=== PATIENT | female | born 1995 | race Caucasian/White ===

== ENCOUNTER 2017-09-13 06:22 | Emergency (ER) | payer OTHER ==
[~2017-09-13] VITALS: Ht 182.9 cm; Wt 50.0 kg
[~2017-09-13 06:22] MED LIST: ALBUTEROL INHALLER; AMOX TR-K CLV1 EAC4 PO; AMOXICILLIN500 MG PO; ATARAX,VISTARIL25 MG PO; BACTRIM,SEPT1 TABLET PO; BENTYL20 MG PO; BOTOX; CIPRO500 MG PO; CLOZARIL100 MG PO; CYCLOBENZAPRINE10 MG PO; CYCLOBENZAPRINE5 MG PO; DIAZEPAM5 MG PO; ENDOCET 5-3251 EACH PO; EXCEDRIN EXTRA1 EACH PO; FIORICET 50-301 EACH PO; FIORICET WI1 CAPSULE PO; FLOVENT; GEODON20 MG PO; IBUPROFEN600 MG PO; IMITREX25 MG PO; IMITREX50 MG PO; KEFLEX500 MG PO; KEPPRA1000 MG PO; KEPPRA500 MG PO; KLONOPIN0.5 M1 PO; LAMICTAL100 MG PO; LEVETIRACETAM500 MG PO; LIDOCAINE HCL35 GM TP; LORTAB 5-325 M1 EACH PO; MELATONIN5 MG SL; MOTRIN800 MG PO; NAPROSYN500 MG PO; NICOTINE PATCH1 EAC2 TD; NORCO 5/3251 TABLET PO; OXCARBAZEPINE600 MG PO; PERCOCET 5/31 TABLET PO; PROAIR HFA8.5 GM IH; REGLAN10 MG PO; RISPERDAL1 MG PO; SERTRALINE HCL100 MG PO; TOPAMAX25 MG PO; TRILEPTAL300 MG PO; TRILEPTAL600 MG PO; TRINESSA1 EACH PO; TYLENOL ARTHRI650 MG PO; VALIUM5 MG PO; VENTOLIN HFA18 GM IH; VIMPAT50 MG PO; VISTARIL25 MG PO; ZOFRAN ODT4 MG PO; ZOFRAN4 MG PO; ZOFRAN8 MG PO; ZOLOFT100 MG PO; ZOLOFT50 MG PO; nicotine gum
[2017-09-13 09:07] LABS: APPEARANCE SL.HAZY ((CLEAR)); BILIRUBIN NEGATIVE; BLOOD NEGATIVE; COLOR YELLOW ((YELLOW)); GLUCOSE (STRIP) NEGATIVE; KETONES NEGATIVE; LEUKOCYTES NEGATIVE; NITRITE NEGATIVE; PROTEIN (STRIP) NEGATIVE; SPECIFIC GRAVITY 1.021 (1.000-1.030)
[2017-09-13 09:09] LABS: BACTERIA NONE SEEN /HPF; EPITHELIAL CELLS 1+ /HPF; MUCUS TRACE /LPF; RED BLOOD CELLS 0-5 /HPF (0-5); UCUL ADDED? NO; WHITE BLOOD CELLS 0-5 /HPF (0-5)
[2017-09-13 09:16] VITALS: BP 111/66
[2017-09-13 09:19] LABS: AMPHETAMINE NEGATIVE (500 ng/mL); BARBITURATES NEGATIVE (200 ng/mL); BENZODIAZEPINES PRESUMPTIVE POSITIVE (150 ng/mL); BUPRENORPHINE NEGATIVE (10 ng/mL); COCAINE NEGATIVE (150 ng/mL); METHADONE NEGATIVE (200 ng/mL); METHAMPHETAMINE NEGATIVE (500 ng/mL); OPIATES (MORPHINE) NEGATIVE (100 ng/mL); OXYCODONE NEGATIVE (100 ng/mL); PHENCYCLIDINE NEGATIVE (25 ng/mL); PROPOXYPHENE NEGATIVE (300 ng/mL); THC CANNABINOIDS PRESUMPTIVE POSITIVE (50 ng/mL); TRICYCLIC ANTIDEPRESSANTS NEGATIVE (300 ng/mL)
[2017-09-13 09:51] LABS: BENZODIAZEPINES, URINE SCREEN POSITIVE (200 ng/mL)
== END 2017-09-13 09:26 | disposition home or self-care (01) ==
LOC: EME 06:22 → EDBD 06:22 → EME 09:26
PROVIDERS: Emergency Medicine
DX: G40.909 Epilepsy, unspecified, not intractable, without status epilepticus (principal); F19.10 Other psychoactive substance abuse, uncomplicated; J45.909 Unspecified asthma, uncomplicated; F17.200 Nicotine dependence, unspecified, uncomplicated; F41.9 Anxiety disorder, unspecified; K21.9 Gastro-esophageal reflux disease without esophagitis; F31.9 Bipolar disorder, unspecified; F60.3 Borderline personality disorder; F43.10 Post-traumatic stress disorder, unspecified; Z88.8 Allergy status to other drugs, medicaments and biological substances
CPT/HCPCS: 81003; 84999; 99281; 99285

== ENCOUNTER 2017-09-13 14:25 | Emergency (ER) | payer OTHER ==
[~2017-09-13] VITALS: Ht 182.9 cm; Wt 64.5 kg
[2017-09-13 17:46] VITALS: BP 126/73
== END 2017-09-13 17:49 | disposition home or self-care (01) ==
LOC: EME 14:25
DX: G43.909 Migraine, unspecified, not intractable, without status migrainosus (principal); K21.9 Gastro-esophageal reflux disease without esophagitis; J45.909 Unspecified asthma, uncomplicated; F32.9 Major depressive disorder, single episode, unspecified; F41.9 Anxiety disorder, unspecified; R56.9 Unspecified convulsions; F31.9 Bipolar disorder, unspecified; Z87.440 Personal history of urinary (tract) infections; F17.200 Nicotine dependence, unspecified, uncomplicated; Z88.5 Allergy status to narcotic agent; Z88.8 Allergy status to other drugs, medicaments and biological substances
CPT/HCPCS: 99281; 99284; J1885; J2765; J3486

== ENCOUNTER 2017-09-19 20:16 | Emergency (ER) | payer OTHER ==
[~2017-09-19] VITALS: Ht 182.9 cm; Wt 65.8 kg
[2017-09-19 21:59] LABS: CHLORIDE 107 mEq/L (99-109); POTASSIUM 3.8 mEq/L (3.7-5.4); SODIUM 140 mEq/L (136-147)
[2017-09-19 22:01] LABS: GLUCOSE 103 mg/dL (70-99)
[2017-09-19 22:05] LABS: CREATININE 0.7 mg/dL (0.6-1.3); GFR ESTIMATE (CALCULATED) > 59 mL/min/
[2017-09-19 22:06] LABS: UREA NITROGEN (BUN) 14 mg/dL (9-23)
[2017-09-19 22:32] VITALS: BP 137/67
== END 2017-09-19 22:33 | disposition home or self-care (01) ==
LOC: EME 20:16
PROVIDERS: Emergency Medicine
DX: G40.909 Epilepsy, unspecified, not intractable, without status epilepticus (principal); F17.200 Nicotine dependence, unspecified, uncomplicated
CPT/HCPCS: 80048; 99281; 99284

== ENCOUNTER 2017-10-01 20:42 | Emergency (ER) | payer OTHER ==
[~2017-10-01] VITALS: Ht 182.9 cm; Wt 66.1 kg
[2017-10-01 21:00] LABS: HEMATOCRIT 39.4 % (36.0-46.0); HEMOGLOBIN 13.3 G/DL (11.9-15.5); MCHC 33.8 G/DL (30.0-36.0); RBC DIS.WIDTH-CV 14.6 % (11.8-14.6); RBC DIS.WIDTH-SD 46.1 % (39-53); RED BLOOD COUNT 4.58 M/uL (3.80-5.20)
[2017-10-01 21:03] LABS: PLATELET COUNT 294 K/uL (156-360)
[2017-10-01 21:14] LABS: ALBUMIN 4.4 g/dL (3.2-4.8); CHLORIDE 103 mEq/L (99-109); POTASSIUM 3.8 mEq/L (3.7-5.4); SODIUM 139 mEq/L (136-147)
[2017-10-01 21:16] LABS: GLUCOSE 86 mg/dL (70-99); TOTAL PROTEIN 7.6 g/dL (6.4-8.3)
[2017-10-01 21:18] LABS: TOTAL BILIRUBIN 0.3 mg/dL (0.0-1.0)
[2017-10-01 21:20] LABS: ALKALINE PHOSPHATASE 76 IU/L (3-129); CREATININE 0.8 mg/dL (0.6-1.3); GFR ESTIMATE (CALCULATED) > 59 mL/min/
[2017-10-01 21:21] LABS: UREA NITROGEN (BUN) 12 mg/dL (9-23)
[2017-10-01 21:22] LABS: AST (GOT) 19 IU/L (2-34)
[2017-10-01 21:23] LABS: ALT (GPT) 14 IU/L (3-49)
[2017-10-01 21:31] LABS: QUANTITATIVE HCG < 4.0 MIU/ML
[2017-10-01 21:56] LABS: APPEARANCE SL.HAZY ((CLEAR)); BILIRUBIN NEGATIVE; BLOOD NEGATIVE; COLOR YELLOW ((YELLOW)); GLUCOSE (STRIP) NEGATIVE; KETONES NEGATIVE; LEUKOCYTES NEGATIVE; NITRITE NEGATIVE; PROTEIN (STRIP) >=500; SPECIFIC GRAVITY 1.028 (1.000-1.030); UROBILINOGEN 0.2 MG/DL (0.2-1.0)
[2017-10-01 22:01] LABS: BACTERIA NONE SEEN /HPF; EPITHELIAL CELLS 1+ /HPF; MUCUS 1+ /LPF; UCUL ADDED? YES
[2017-10-01] MEDS ORDERED: CIPRO500 MG PO (23:23)
[2017-10-01 23:50] VITALS: BP 119/90
== END 2017-10-01 23:52 | disposition home or self-care (01) ==
LOC: EME 20:42
DX: N39.0 Urinary tract infection, site not specified (principal); J45.909 Unspecified asthma, uncomplicated; K21.9 Gastro-esophageal reflux disease without esophagitis; F32.9 Major depressive disorder, single episode, unspecified; F41.9 Anxiety disorder, unspecified; R56.9 Unspecified convulsions; F17.200 Nicotine dependence, unspecified, uncomplicated
CPT/HCPCS: 74176; 80053; 81003; 84702; 85027; 87086; 99281; 99284

== ENCOUNTER 2017-10-02 21:04 | Emergency (ER) | payer OTHER ==
[~2017-10-02] VITALS: Ht 182.9 cm; Wt 53.4 kg
[2017-10-02 22:08] LABS: AMPHETAMINE NEGATIVE (500 ng/mL); BARBITURATES NEGATIVE (200 ng/mL); BENZODIAZEPINES PRESUMPTIVE POSITIVE (150 ng/mL); BUPRENORPHINE NEGATIVE (10 ng/mL); COCAINE NEGATIVE (150 ng/mL); METHADONE NEGATIVE (200 ng/mL); METHAMPHETAMINE NEGATIVE (500 ng/mL); OPIATES (MORPHINE) NEGATIVE (100 ng/mL); OXYCODONE NEGATIVE (100 ng/mL); PHENCYCLIDINE NEGATIVE (25 ng/mL); PROPOXYPHENE NEGATIVE (300 ng/mL); THC CANNABINOIDS PRESUMPTIVE POSITIVE (50 ng/mL); TRICYCLIC ANTIDEPRESSANTS PRESUMPTIVE POSITIVE (300 ng/mL)
[2017-10-02 22:21] LABS: CHLORIDE 110 mEq/L (99-109); SODIUM 138 mEq/L (136-147)
[2017-10-02 22:22] LABS: GLUCOSE 91 mg/dL (70-99)
[2017-10-02 22:25] LABS: SERUM ETHYL ALCOHOL 41 mg/dL
[2017-10-02 22:26] LABS: CREATININE 0.7 mg/dL (0.6-1.3); GFR ESTIMATE (CALCULATED) > 59 mL/min/
[2017-10-02 22:27] LABS: UREA NITROGEN (BUN) 14 mg/dL (9-23)
[2017-10-02 22:36] VITALS: BP 146/67
[2017-10-02 22:38] LABS: BENZODIAZEPINES, URINE SCREEN Negative (200 ng/mL)
[2017-10-02 22:38] LABS: POTASSIUM 4.8 mEq/L (3.7-5.4)
== END 2017-10-02 22:37 | disposition home or self-care (01) ==
LOC: EME 21:04
DX: F32.9 Major depressive disorder, single episode, unspecified (principal); F41.1 Generalized anxiety disorder; F60.3 Borderline personality disorder; G40.909 Epilepsy, unspecified, not intractable, without status epilepticus; Z59.0 Homelessness; F17.200 Nicotine dependence, unspecified, uncomplicated
CPT/HCPCS: 80048; 84702; 84999; 85027; 90837; 99281; 99284; G0480

== ENCOUNTER 2017-10-07 18:16 | Emergency (ER) | payer OTHER ==
[~2017-10-07] VITALS: Ht 182.9 cm; Wt 64.2 kg
[2017-10-07] MEDS ORDERED: VIMPAT50 MG PO (21:07)
[2017-10-07 21:43] VITALS: BP 118/57
[2017-10-07] MEDS ORDERED: EFFEXOR75 MG PO (21:46)
[2017-10-07] MEDS ORDERED: AMITRIPTYLINE H25 MG PO ×2 (21:46→21:47)
== END 2017-10-07 21:50 | disposition home or self-care (01) ==
LOC: EME 18:16
DX: R51 Headache (principal); G40.89 Other seizures; K21.9 Gastro-esophageal reflux disease without esophagitis; J45.909 Unspecified asthma, uncomplicated; F41.9 Anxiety disorder, unspecified; F32.9 Major depressive disorder, single episode, unspecified; F17.200 Nicotine dependence, unspecified, uncomplicated; Z88.5 Allergy status to narcotic agent; Z88.8 Allergy status to other drugs, medicaments and biological substances
CPT/HCPCS: J2765; J7030

== ENCOUNTER 2017-10-16 15:55 | Emergency (ER) | payer OTHER ==
[~2017-10-16] VITALS: Ht 182.9 cm; Wt 62.3 kg
[~2017-10-16 15:55] MED LIST changes: +AMITRIPTYLINE H25 MG PO; +EFFEXOR75 MG PO
[2017-10-16 17:02] LABS: HEMATOCRIT 45.9 % (36.0-46.0); MCHC 33.6 G/DL (30.0-36.0); MCV 86.4 FL (83-99); RBC DIS.WIDTH-CV 15.2 % (11.8-14.6); RBC DIS.WIDTH-SD 48.4 % (39-53); RED BLOOD COUNT 5.31 M/uL (3.80-5.20)
[2017-10-16 17:14] LABS: ALBUMIN 4.7 g/dL (3.2-4.8)
[2017-10-16 17:15] LABS: CHLORIDE 105 mEq/L (99-109); POTASSIUM 3.6 mEq/L (3.7-5.4); SODIUM 140 mEq/L (136-147)
[2017-10-16 17:17] LABS: GLUCOSE 80 mg/dL (70-99); TOTAL PROTEIN 8.2 g/dL (6.4-8.3)
[2017-10-16 17:19] LABS: TOTAL BILIRUBIN 0.3 mg/dL (0.0-1.0)
[2017-10-16 17:20] LABS: ALKALINE PHOSPHATASE 84 IU/L (3-129)
[2017-10-16 17:21] LABS: CREATININE 0.7 mg/dL (0.6-1.3); GFR ESTIMATE (CALCULATED) > 59 mL/min/
[2017-10-16 17:22] LABS: AST (GOT) 19 IU/L (2-34); UREA NITROGEN (BUN) 13 mg/dL (9-23)
[2017-10-16 17:24] LABS: ALT (GPT) 15 IU/L (3-49)
[2017-10-16 18:27] LABS: HEMOGLOBIN 15.4 G/DL (11.9-15.5); PLATELET COUNT 100 K/uL (156-360)
[2017-10-16 19:21] VITALS: BP 134/62
== END 2017-10-16 19:22 | disposition home or self-care (01) ==
LOC: EME 15:55
PROVIDERS: Emergency Medicine
DX: G40.909 Epilepsy, unspecified, not intractable, without status epilepticus (principal); R00.0 Tachycardia, unspecified; F17.200 Nicotine dependence, unspecified, uncomplicated
CPT/HCPCS: 80053; 85027; 93005; 99281; 99285; J2250; J7030

== ENCOUNTER 2017-10-19 20:48 | Emergency (ER) | payer OTHER ==
[~2017-10-19] VITALS: Ht 182.9 cm; Wt 65.3 kg
[2017-10-19 21:57] VITALS: BP 131/64
== END 2017-10-19 21:58 | disposition home or self-care (01) ==
LOC: EME 20:48
DX: F32.9 Major depressive disorder, single episode, unspecified (principal); G40.909 Epilepsy, unspecified, not intractable, without status epilepticus; F12.90 Cannabis use, unspecified, uncomplicated; J45.909 Unspecified asthma, uncomplicated; K21.9 Gastro-esophageal reflux disease without esophagitis; F41.9 Anxiety disorder, unspecified; F17.200 Nicotine dependence, unspecified, uncomplicated
CPT/HCPCS: 80053; 81003; 85027; 99281; 99283; G0480

== ENCOUNTER 2017-10-20 14:47 | Emergency (ER) | payer OTHER ==
[~2017-10-20] VITALS: Ht 182.9 cm; Wt 65.1 kg
[2017-10-20 16:07] VITALS: BP 133/58
== END 2017-10-20 16:37 | disposition home or self-care (01) ==
LOC: EME 14:47
DX: G40.909 Epilepsy, unspecified, not intractable, without status epilepticus (principal); Z91.14 Patient's other noncompliance with medication regimen; K21.9 Gastro-esophageal reflux disease without esophagitis; J45.909 Unspecified asthma, uncomplicated; F41.9 Anxiety disorder, unspecified; F32.9 Major depressive disorder, single episode, unspecified; F31.9 Bipolar disorder, unspecified; F17.200 Nicotine dependence, unspecified, uncomplicated; Z87.440 Personal history of urinary (tract) infections; Z88.5 Allergy status to narcotic agent; Z88.8 Allergy status to other drugs, medicaments and biological substances
CPT/HCPCS: 82948; 99281; 99283

== ENCOUNTER 2017-10-20 21:12 | Emergency (ER) | payer OTHER ==
[~2017-10-20] VITALS: Ht 165.1 cm; Wt 61.8 kg
[2017-10-20 21:56] LABS: APPEARANCE CLEAR ((CLEAR)); BILIRUBIN NEGATIVE; BLOOD NEGATIVE; COLOR COLORLESS ((YELLOW)); GLUCOSE (STRIP) NEGATIVE; KETONES NEGATIVE; LEUKOCYTES NEGATIVE; NITRITE NEGATIVE; PROTEIN (STRIP) NEGATIVE; SPECIFIC GRAVITY 1.003 (1.000-1.030); UROBILINOGEN 0.2 MG/DL (0.2-1.0)
[2017-10-20 22:06] LABS: AMPHETAMINE NEGATIVE (500 ng/mL); BARBITURATES NEGATIVE (200 ng/mL); BENZODIAZEPINES NEGATIVE (150 ng/mL); BUPRENORPHINE NEGATIVE (10 ng/mL); COCAINE NEGATIVE (150 ng/mL); METHADONE NEGATIVE (200 ng/mL); METHAMPHETAMINE NEGATIVE (500 ng/mL); OPIATES (MORPHINE) NEGATIVE (100 ng/mL); OXYCODONE NEGATIVE (100 ng/mL); PHENCYCLIDINE NEGATIVE (25 ng/mL); PROPOXYPHENE NEGATIVE (300 ng/mL); THC CANNABINOIDS PRESUMPTIVE POSITIVE (50 ng/mL); TRICYCLIC ANTIDEPRESSANTS NEGATIVE (300 ng/mL)
[2017-10-20 22:33] LABS: HEMATOCRIT 36.4 % (36.0-46.0); MCH 28.7 PG (29.0-34.0); MCHC 33.2 G/DL (30.0-36.0); MCV 86.5 FL (83-99); RBC DIS.WIDTH-CV 15.2 % (11.8-14.6); RBC DIS.WIDTH-SD 47.9 % (39-53)
[2017-10-20 22:38] LABS: HEMOGLOBIN 12.1 G/DL (11.9-15.5); PLATELET COUNT 254 K/uL (156-360); RED BLOOD COUNT 4.21 M/uL (3.80-5.20)
[2017-10-20 22:40] LABS: ALBUMIN 3.9 g/dL (3.2-4.8); CHLORIDE 114 mEq/L (99-109); SODIUM 146 mEq/L (136-147)
[2017-10-20 22:42] LABS: GLUCOSE 91 mg/dL (70-99)
[2017-10-20 22:43] LABS: TOTAL PROTEIN 6.4 g/dL (6.4-8.3)
[2017-10-20 22:45] LABS: SERUM ETHYL ALCOHOL 231 mg/dL
[2017-10-20 22:46] LABS: ALKALINE PHOSPHATASE 76 IU/L (3-129); CREATININE 0.7 mg/dL (0.6-1.3); GFR ESTIMATE (CALCULATED) > 59 mL/min/
[2017-10-20 22:47] LABS: TOTAL BILIRUBIN 0.1 mg/dL (0.0-1.0); UREA NITROGEN (BUN) 13 mg/dL (9-23)
[2017-10-20 22:48] LABS: AST (GOT) 16 IU/L (2-34)
[2017-10-20 22:49] LABS: ALT (GPT) 13 IU/L (3-49)
[2017-10-21 05:15] VITALS: BP 115/65
== END 2017-10-21 05:15 | disposition home or self-care (01) ==
LOC: EME → EDBD 21:12 → EME 21:12
PROVIDERS: Emergency Medicine
DX: F10.129 Alcohol abuse with intoxication, unspecified (principal); R56.9 Unspecified convulsions; T76.21XA Adult sexual abuse, suspected, initial encounter; F12.10 Cannabis abuse, uncomplicated; Y90.7 Blood alcohol level of 200-239 mg/100 ml; Z88.8 Allergy status to other drugs, medicaments and biological substances
CPT/HCPCS: 80053; 81003; 84999; 85027; 99281; 99285; G0480; J1630; J1953; J2250; J2405; J7030; J7050

== ENCOUNTER 2017-10-24 20:36 | Emergency (ER) | payer OTHER ==
[~2017-10-24] VITALS: Ht 182.9 cm; Wt 66.8 kg
[2017-10-24 21:14] LABS: BASOPHIL (%) 0.3 % (0-1); EOSINOPHIL (%) 2.1 % (0-5); EOSINOPHIL COUNT 0.3 K/uL (0-0.3); HEMATOCRIT 37.2 % (36.0-46.0); HEMOGLOBIN 12.7 G/DL (11.9-15.5); IMMATURE GRANULOCYTE (%) 0.3 % (0.0-0.7); LYMPHOCYTE (%) 31.4 % (15-42); LYMPHOCYTE COUNT 3.8 K/uL (1.0-2.8); MCH 29.1 PG (29.0-34.0); MCHC 34.1 G/DL (30.0-36.0); MCV 85.1 FL (83-99); MONOCYTE (%) 7.7 % (3-12); MONOCYTE COUNT 0.9 K/uL (0-0.8); NEUTROPHIL (%) 58.2 % (45-76); PLATELET COUNT 285 K/uL (156-360); RBC DIS.WIDTH-CV 15.2 % (11.8-14.6); RBC DIS.WIDTH-SD 47.2 % (39-53); RED BLOOD COUNT 4.37 M/uL (3.80-5.20)
[2017-10-24 21:24] LABS: ALBUMIN 4.1 g/dL (3.2-4.8); CHLORIDE 106 mEq/L (99-109); POTASSIUM 3.3 mEq/L (3.7-5.4); SODIUM 142 mEq/L (136-147)
[2017-10-24 21:26] LABS: GLUCOSE 83 mg/dL (70-99); TOTAL PROTEIN 6.8 g/dL (6.4-8.3)
[2017-10-24 21:28] LABS: TOTAL BILIRUBIN 0.1 mg/dL (0.0-1.0)
[2017-10-24 21:29] LABS: SERUM ETHYL ALCOHOL 129 mg/dL
[2017-10-24 21:30] LABS: ALKALINE PHOSPHATASE 75 IU/L (3-129); CREATININE 0.6 mg/dL (0.6-1.3); GFR ESTIMATE (CALCULATED) > 59 mL/min/
[2017-10-24 21:31] LABS: AST (GOT) 15 IU/L (2-34)
[2017-10-24 21:32] LABS: UREA NITROGEN (BUN) 9 mg/dL (9-23)
[2017-10-24 21:33] LABS: SALICYLATE < 5.0 MG/DL (15-30)
[2017-10-24 21:34] LABS: ACETAMINOPHEN (TYLENOL) < 10 mcg/mL (10-30); ALT (GPT) 13 IU/L (3-49)
[2017-10-24 22:24] LABS: AMPHETAMINE NEGATIVE (500 ng/mL); BARBITURATES NEGATIVE (200 ng/mL); BENZODIAZEPINES NEGATIVE (150 ng/mL); BUPRENORPHINE NEGATIVE (10 ng/mL); COCAINE NEGATIVE (150 ng/mL); METHADONE NEGATIVE (200 ng/mL); METHAMPHETAMINE NEGATIVE (500 ng/mL); OPIATES (MORPHINE) NEGATIVE (100 ng/mL); OXYCODONE NEGATIVE (100 ng/mL); PHENCYCLIDINE NEGATIVE (25 ng/mL); PROPOXYPHENE NEGATIVE (300 ng/mL); THC CANNABINOIDS PRESUMPTIVE POSITIVE (50 ng/mL); TRICYCLIC ANTIDEPRESSANTS NEGATIVE (300 ng/mL)
[2017-10-24 22:25] LABS: APPEARANCE CLEAR ((CLEAR)); BILIRUBIN NEGATIVE; BLOOD NEGATIVE; COLOR YELLOW ((YELLOW)); GLUCOSE (STRIP) NEGATIVE; KETONES NEGATIVE; LEUKOCYTES TRACE; NITRITE NEGATIVE; PROTEIN (STRIP) 100; SPECIFIC GRAVITY 1.013 (1.000-1.030); UROBILINOGEN 0.2 MG/DL (0.2-1.0)
[2017-10-24 22:31] LABS: BACTERIA RARE /HPF; EPITHELIAL CELLS 1+ /HPF; MUCUS TRACE /LPF; RED BLOOD CELLS 0-5 /HPF (0-5); WHITE BLOOD CELLS 0-5 /HPF (0-5)
[2017-10-25 00:14] VITALS: BP 151/69
== END 2017-10-25 00:16 | disposition home or self-care (01) ==
LOC: EME 20:36
PROVIDERS: Emergency Medicine
DX: F32.9 Major depressive disorder, single episode, unspecified (principal); F41.9 Anxiety disorder, unspecified; F60.3 Borderline personality disorder; F10.10 Alcohol abuse, uncomplicated; Y90.6 Blood alcohol level of 120-199 mg/100 ml; Z59.0 Homelessness; Z91.410 Personal history of adult physical and sexual abuse; J45.909 Unspecified asthma, uncomplicated; K21.9 Gastro-esophageal reflux disease without esophagitis; R56.9 Unspecified convulsions; F17.200 Nicotine dependence, unspecified, uncomplicated; Z87.440 Personal history of urinary (tract) infections; Z88.8 Allergy status to other drugs, medicaments and biological substances
CPT/HCPCS: 80053; 81003; 81025; 84999; 85025; 90839; 99281; 99284; G0480

== ENCOUNTER 2017-12-29 21:56 | Emergency (ER) | payer OTHER ==
[~2017-12-29] VITALS: Ht 182.9 cm; Wt 65.5 kg
[2017-12-29] MEDS ORDERED: PEN-VEE K,VEET500 MG PO (21:58)
[2017-12-29 22:37] VITALS: BP 125/73
== END 2017-12-29 22:47 | disposition home or self-care (01) ==
LOC: EME 21:56
DX: J02.0 Streptococcal pharyngitis (principal); J45.909 Unspecified asthma, uncomplicated; K21.9 Gastro-esophageal reflux disease without esophagitis; F41.9 Anxiety disorder, unspecified; F32.9 Major depressive disorder, single episode, unspecified; F31.9 Bipolar disorder, unspecified; F17.200 Nicotine dependence, unspecified, uncomplicated; Z87.440 Personal history of urinary (tract) infections; Z88.5 Allergy status to narcotic agent; Z88.8 Allergy status to other drugs, medicaments and biological substances
CPT/HCPCS: 99281; 99284; J1100

== ENCOUNTER 2018-03-15 15:07 | Emergency (ER) | payer OTHER ==
[~2018-03-15] VITALS: Ht 182.9 cm; Wt 63.6 kg
[~2018-03-15 15:07] MED LIST changes: +PEN-VEE K,VEET500 MG PO
[2018-03-15 15:53] LABS: PLATELET COUNT 135 K/uL (156-360)
[2018-03-15 15:59] LABS: HEMOGLOBIN 12.6 G/DL (11.9-15.5); MCH 28.6 PG (29.0-34.0); MCV 81.8 FL (83-99); RBC DIS.WIDTH-CV 15.9 % (11.8-14.6); RBC DIS.WIDTH-SD 47.8 % (39-53)
[2018-03-15 16:02] LABS: ALBUMIN 3.5 g/dL (3.2-4.8); CHLORIDE 103 mEq/L (99-109); POTASSIUM 3.6 mEq/L (3.7-5.4); SODIUM 137 mEq/L (136-147)
[2018-03-15 16:05] LABS: GLUCOSE 92 mg/dL (70-99); TOTAL PROTEIN 6.5 g/dL (6.4-8.3); WHITE BLOOD COUNT 32.3 K/uL (4.1-10.2)
[2018-03-15 16:07] LABS: TOTAL BILIRUBIN 1.9 mg/dL (0.0-1.0)
[2018-03-15 16:08] LABS: ALKALINE PHOSPHATASE 175 IU/L (3-129)
[2018-03-15 16:09] LABS: CREATININE 0.9 mg/dL (0.6-1.3); GFR ESTIMATE (CALCULATED) > 59 mL/min/
[2018-03-15 16:10] LABS: AST (GOT) 244 IU/L (2-34); DIRECT BILIRUBIN 1.2 mg/dL (0.0-0.3); UREA NITROGEN (BUN) 16 mg/dL (9-23)
[2018-03-15 16:11] LABS: ALT (GPT) 472 IU/L (3-49)
[2018-03-15 16:12] LABS: LIPASE 11 U/L (1.0-51.0)
[2018-03-15 17:09] LABS: ABS NEUTROPHIL COUNT 29.6; ACANTHOCYTES 1+; BAND NEUTROPHILS 11.5 % (0-8.0); BURR CELLS 3+; EOSINOPHIL ABS CT 0; HYPOCHROMASIA 1+; LYMPHOCYTES 3.5 % (15.0-45.0); MACROCYTES 1+; MICROCYTOSIS 1+; PLAT.SUFFICIENCY DECREASED; POIKILOCYTOSIS 1+; TOX.VACUOLIZATION 1+; TOXIC GRANULATION 1+
[2018-03-15 17:27] LABS: APPEARANCE CLEAR ((CLEAR)); BILIRUBIN NEGATIVE; BLOOD NEGATIVE; COLOR AMBER ((YELLOW)); GLUCOSE (STRIP) NEGATIVE; KETONES NEGATIVE; LEUKOCYTES NEGATIVE; NITRITE NEGATIVE; PROTEIN (STRIP) 100
[2018-03-15 17:34] LABS: BACTERIA RARE /HPF; CALCIUM OXALATE CRYSTALS 1+ /HPF; EPITHELIAL CELLS 2+ /HPF; MUCUS NONE SEEN /LPF; WHITE BLOOD CELLS 30-40 /HPF (0-5)
[2018-03-15 17:34] LABS: SERUM ETHYL ALCOHOL < 10 mg/dL
[2018-03-15 17:47] LABS: AMPHETAMINE PRESUMPTIVE POSITIVE (500 ng/mL); BARBITURATES NEGATIVE (200 ng/mL); BENZODIAZEPINES NEGATIVE (150 ng/mL); BUPRENORPHINE NEGATIVE (10 ng/mL); COCAINE NEGATIVE (150 ng/mL); METHADONE NEGATIVE (200 ng/mL); METHAMPHETAMINE PRESUMPTIVE POSITIVE (500 ng/mL); OPIATES (MORPHINE) NEGATIVE (100 ng/mL); OXYCODONE NEGATIVE (100 ng/mL); PHENCYCLIDINE NEGATIVE (25 ng/mL); PROPOXYPHENE NEGATIVE (300 ng/mL); THC CANNABINOIDS PRESUMPTIVE POSITIVE (50 ng/mL); TRICYCLIC ANTIDEPRESSANTS NEGATIVE (300 ng/mL)
[2018-03-15 18:27] LABS: CREATINE KINASE 17 IU/L (1-294)
[2018-03-15 18:41] LABS: ACETAMINOPHEN (TYLENOL) < 10 mcg/mL (10-30); SALICYLATE < 5.0 MG/DL (15-30)
[2018-03-15] MEDS ORDERED: VIMPAT50 MG PO (18:49)
[2018-03-15] MEDS ORDERED: OXYCODONE-ACET1 EACH PO (18:50)
[2018-03-15 18:51] LABS: APPEARANCE CLEAR ((CLEAR)); BILIRUBIN NEGATIVE; BLOOD NEGATIVE; COLOR AMBER ((YELLOW)); GLUCOSE (STRIP) NEGATIVE; KETONES NEGATIVE; LEUKOCYTES NEGATIVE; NITRITE NEGATIVE; PROTEIN (STRIP) 100; SPECIFIC GRAVITY 1.012 (1.000-1.030)
[2018-03-15] MEDS ORDERED: MORPHINE SULFAT15 M1 PO (18:51)
[2018-03-15] MEDS ORDERED: EXCEDRIN MIGRA1 EAC3 PO (18:52)
[2018-03-15] MEDS ORDERED: VENTOLIN HFA18 GM IH (18:52)
[2018-03-15 19:46] LABS: EPITHELIAL CELLS RARE /HPF; MUCUS NONE SEEN /LPF; RED BLOOD CELLS 0-5 /HPF (0-5); WHITE BLOOD CELLS 0-5 /HPF (0-5)
[2018-03-15 19:47] LABS: BACTERIA RARE /HPF
[2018-03-15] MEDS ORDERED: ZOFRAN ODT8 MG PO (20:01)
[2018-03-15] MEDS ORDERED: BENTYL20 MG PO (20:01)
[2018-03-15] MEDS ORDERED: KEFLEX500 MG PO (20:01)
[2018-03-15 20:27] VITALS: BP 118/66
== END 2018-03-15 20:28 | disposition left against medical advice (07) ==
LOC: EME 15:07
PROVIDERS: Physician Assistant
DX: R10.10 Upper abdominal pain, unspecified (principal); R11.2 Nausea with vomiting, unspecified; D72.829 Elevated white blood cell count, unspecified; R74.0 Nonspecific elevation of levels of transaminase and lactic acid dehydrogenase [LDH]; E80.6 Other disorders of bilirubin metabolism; F32.9 Major depressive disorder, single episode, unspecified; Z53.20 Procedure and treatment not carried out because of patient's decision for unspecified reasons; F17.200 Nicotine dependence, unspecified, uncomplicated; F12.90 Cannabis use, unspecified, uncomplicated; Z88.8 Allergy status to other drugs, medicaments and biological substances
CPT/HCPCS: 74176; 80048; 80076; 81003; 82550; 83605; 83690; 84999; 85025; 87040; 87086; 99281; 99285; G0480; J0696; J1885; J2405; J3010; J7030; J7050

== ENCOUNTER 2018-03-16 13:49 | Emergency (ER) | payer OTHER ==
[~2018-03-16] VITALS: Ht 182.9 cm; Wt 64.5 kg
[~2018-03-16 13:49] MED LIST changes: +EXCEDRIN MIGRA1 EAC3 PO; +MORPHINE SULFAT15 M1 PO; +OXYCODONE-ACET1 EACH PO; +ZOFRAN ODT8 MG PO
[2018-03-16 15:12] LABS: HEMATOCRIT 33.8 % (36.0-46.0); HEMOGLOBIN 11.5 G/DL (11.9-15.5); MCH 28.4 PG (29.0-34.0); MCV 83.5 FL (83-99); PLATELET COUNT 117 K/uL (156-360); RBC DIS.WIDTH-CV 15.9 % (11.8-14.6); RBC DIS.WIDTH-SD 48.8 % (39-53); RED BLOOD COUNT 4.05 M/uL (3.80-5.20); WHITE BLOOD COUNT 14.6 K/uL (4.1-10.2)
[2018-03-16 15:22] LABS: ALBUMIN 3.3 g/dL (3.2-4.8)
[2018-03-16 15:23] LABS: CHLORIDE 111 mEq/L (99-109); POTASSIUM 3.4 mEq/L (3.7-5.4)
[2018-03-16 15:25] LABS: GLUCOSE 87 mg/dL (70-99); TOTAL PROTEIN 6.1 g/dL (6.4-8.3)
[2018-03-16 15:28] LABS: ALKALINE PHOSPHATASE 195 IU/L (3-129)
[2018-03-16 15:29] LABS: CREATININE 0.9 mg/dL (0.6-1.3); GFR ESTIMATE (CALCULATED) > 59 mL/min/
[2018-03-16 15:30] LABS: AST (GOT) 300 IU/L (2-34); UREA NITROGEN (BUN) 12 mg/dL (9-23)
[2018-03-16 15:31] LABS: ALT (GPT) 418 IU/L (3-49)
[2018-03-16 15:32] LABS: LIPASE 9 U/L (1.0-51.0)
[2018-03-16 15:34] LABS: SODIUM 144 mEq/L (136-147); TOTAL BILIRUBIN 1.3 mg/dL (0.0-1.0)
[2018-03-16 16:01] LABS: BASOPHIL (%) 0.2 % (0-1); EOSINOPHIL COUNT 0.2 K/uL (0-0.3); IMMATURE GRANULOCYTE (%) 0.5 % (0.0-0.7); LYMPHOCYTE (%) 19.9 % (15-42); LYMPHOCYTE COUNT 2.9 K/uL (1.0-2.8); MONOCYTE (%) 6.8 % (3-12); NEUTROPHIL (%) 71.6 % (45-76); NEUTROPHIL COUNT 10.5 K/uL (1.8-6.4); PLAT.SUFFICIENCY DECREASED
[2018-03-16 16:36] LABS: APPEARANCE CLEAR ((CLEAR)); BILIRUBIN NEGATIVE; BLOOD SMALL; COLOR AMBER ((YELLOW)); GLUCOSE (STRIP) NEGATIVE; KETONES NEGATIVE; LEUKOCYTES NEGATIVE; NITRITE NEGATIVE; PROTEIN (STRIP) 100; SPECIFIC GRAVITY 1.019 (1.000-1.030)
[2018-03-16 16:42] LABS: BACTERIA RARE /HPF; EPITHELIAL CELLS 1+ /HPF; MUCUS TRACE /LPF; RED BLOOD CELLS 0-5 /HPF (0-5); UCUL ADDED? YES
[2018-03-16 18:12] VITALS: BP 122/72
== END 2018-03-16 18:17 | disposition home or self-care (01) ==
LOC: EME 13:49
PROVIDERS: Emergency Medicine
DX: R11.2 Nausea with vomiting, unspecified (principal); R79.89 Other specified abnormal findings of blood chemistry; F12.10 Cannabis abuse, uncomplicated; J45.909 Unspecified asthma, uncomplicated; K21.9 Gastro-esophageal reflux disease without esophagitis; G43.909 Migraine, unspecified, not intractable, without status migrainosus; R56.9 Unspecified convulsions; F41.9 Anxiety disorder, unspecified; F32.9 Major depressive disorder, single episode, unspecified; F31.9 Bipolar disorder, unspecified; F17.200 Nicotine dependence, unspecified, uncomplicated; Z79.51 Long term (current) use of inhaled steroids; Z87.440 Personal history of urinary (tract) infections; Z91.013 Allergy to seafood; Z88.8 Allergy status to other drugs, medicaments and biological substances; Z88.5 Allergy status to narcotic agent
CPT/HCPCS: 80053; 81003; 83690; 85025; 87086; 99281; 99284; J7030